=== PATIENT | female | born 1970 | race Caucasian/White ===

== ENCOUNTER 2016-09-19 15:12 | Outpatient (CLI) | payer BC ==
--- NOTE | 2016-09-22 08:36 | Mammography Report ---
BILATERAL DIGITAL SCREENING MAMMOGRAM with CAD: 09/19/16 15:12:00 CLINICAL: Routine screening. COMPARISON:07/18/15 bilateral screening and 12/07/15 right mammogram. FINDINGS: The breasts are heterogeneously dense, which may obscure small masses.A previously described right asymmetry is no longer identified. A few benign calcifications in the right breast. No mass, architectural distortion or suspicious calcifications. IMPRESSION: No mammographic evidence of malignancy. BI-RADS CATEGORY: 2 - - Benign RECOMMENDATION: Routine mammographic screening in one year. COMMENT: Patient follow-up letters are generated by our [employer] application.
== END 2016-09-19 15:13 | disposition home or self-care (01) ==
LOC: MAMMO 15:12
PROVIDERS: ATTEND Family Medicine Adult Medicine
DX: Z12.31 Encounter for screening mammogram for malignant neoplasm of breast (principal)
CPT/HCPCS: 77067; G0202